=== PATIENT | female | born 1945 | race African-American/Black ===

== ENCOUNTER → 2016-10-05 | Outpatient (CLI) | payer MEDICARE, MEDICAID ==
--- NOTE | 2016-10-06 18:01 | WOMENS IMAGING REPORT ---
EXAM DESCRIPTION: RIGHT DIAGNOSTIC MAMMO W/CAD; U/S BREAST UNILAT LIMITED COMPLETED DATE/TIME: 10/05/2016 10:29 am; 10/05/2016 11:19 am REASON FOR STUDY: N63 LUMP; RT BREAST LUMP,N63 R92.2 INCONCLUSIVE MAMMOGRAM COMPARISON: 08/24/2016, 01/09/2014 TECHNIQUE: Cone compression craniocaudal and mediolateral oblique images of the breast recorded with digital acquisition. Additional right breast ultrasound LIMITATIONS: None. FINDINGS: BREAST: right MASSES: In the right breast laterally, about the 9 o'clock position, a mammographic nodule is present with ill-defined borders, measuring about 1 cm in size CALCIFICATIONS: No new or suspicious calcifications. ARCHITECTURAL DISTORTION: None. DEVELOPING DENSITY: None. ASYMMETRY: None noted. OTHER: No other significant findings. Read with the assistance of CAD. .[facility] - R2 Cenova Version 1.3 .[facility] - R2 Cenova Version 1.3 .[facility] - R2 Cenova Version 2.4 .[facility] [place] R2 Cenova Version 2.4 .[facility] - R2 Hospital Sales Representative Version 9.2 Right breast ultrasound: Ultrasound of the right breast 9 o'clock position demonstrates a solid hypoechoic mammographic nodule , taller than wide, with irregular margins worrisome for malignancy. This measures about 1 cm in alaina meter. Ultrasound-guided core biopsy and post biopsy clip placement with follow-up two-view mammogra m recommended. BREAST DENSITY: b. There are scattered areas of fibroglandular density. BIRAD: 5 Highly suggestive of malignancy. Appropriate action should be taken. RECOMMENDATION: RECOMMENDED FOLLOW UP: Right breast ultrasound-guided core biopsy recommended SPECIFIC INTERVENTION/IMAGING/CONSULTATION RECOMMENDED:Right breast ultrasound-guided core biopsy wit h post biopsy mammograms recommended. COMMUNICATION:Patient notified by letter. Practitioner notified. COMMENT: PATIENT NOTIFIED BY LETTER. The [employer] (ACR) has developed recommendations for screening MRI of the breast s in certain patient populations, to be used in conjunction with mammography. Breast MRI surveillanc e may be appropriate for women with more than 20% lifetime risk of developing breast cancer as deter mined by genetic testing, significant family history of the disease, or history of mantle radiation f or Hodgkins Disease. ACR Practice Guidelines 2008. TECHNICAL DOCUMENTATION: FINDING NUMBER: (1) ASSESSMENT: (1) JOB ID: [id number] [employer]- All Rights Reserved
--- NOTE | 2016-10-06 18:01 | WOMENS IMAGING REPORT ---
EXAM DESCRIPTION: RIGHT DIAGNOSTIC MAMMO W/CAD; U/S BREAST UNILAT LIMITED COMPLETED DATE/TIME: 10/05/2016 10:29 am; 10/05/2016 11:19 am REASON FOR STUDY: N63 LUMP; RT BREAST LUMP,N63 R92.2 INCONCLUSIVE MAMMOGRAM COMPARISON: 08/24/2016, 01/09/2014 TECHNIQUE: Cone compression craniocaudal and mediolateral oblique images of the breast recorded with digital acquisition. Additional right breast ultrasound LIMITATIONS: None. FINDINGS: BREAST: right MASSES: In the right breast laterally, about the 9 o'clock position, a mammographic nodule is present with ill-defined borders, measuring about 1 cm in size CALCIFICATIONS: No new or suspicious calcifications. ARCHITECTURAL DISTORTION: None. DEVELOPING DENSITY: None. ASYMMETRY: None noted. OTHER: No other significant findings. Read with the assistance of CAD. .[facility] - R2 Cenova Version 1.3 .[facility] - R2 Cenova Version 1.3 .[facility] - R2 Cenova Version 2.4 .[facility] [place] Cenova Version 2.4 .[facility] - R2 Stogy Roller Version 9.2 Right breast ultrasound: Ultrasound of the right breast 9 o'clock position demonstrates a solid hypoechoic mammographic nodule , taller than wide, with irregular margins worrisome for malignancy. This measures about 1 cm in alaina meter. Ultrasound-guided core biopsy and post biopsy clip placement with follow-up two-view mammogra m recommended. BREAST DENSITY: b. There are scattered areas of fibroglandular density. BIRAD: 5 Highly suggestive of malignancy. Appropriate action should be taken. RECOMMENDATION: RECOMMENDED FOLLOW UP: Right breast ultrasound-guided core biopsy recommended SPECIFIC INTERVENTION/IMAGING/CONSULTATION RECOMMENDED:Right breast ultrasound-guided core biopsy wit h post biopsy mammograms recommended. COMMUNICATION:Patient notified by letter. Practitioner notified. COMMENT: PATIENT NOTIFIED BY LETTER. The [employer] (ACR) has developed recommendations for screening MRI of the breast s in certain patient populations, to be used in conjunction with mammography. Breast MRI surveillanc e may be appropriate for women with more than 20% lifetime risk of developing breast cancer as deter mined by genetic testing, significant family history of the disease, or history of mantle radiation f or Hodgkins Disease. ACR Practice Guidelines 2008. TECHNICAL DOCUMENTATION: FINDING NUMBER: (1) ASSESSMENT: (1) JOB ID: [id number] [employer]- All Rights Reserved
== END ==
LOC: WHI 12:13
PROVIDERS: ATTEND Nurse Practitioner Psychiatric/Mental Health
DX: N63 Unspecified lump in breast (principal)
CPT/HCPCS: 76642; G0204

== ENCOUNTER → 2016-10-16 | Day surgery (SDC) | payer MEDICARE, MEDICAID ==
[~2016-10-16] MED LIST: LIDOCAINE 2% INJ (20 MG/ML) 20 ML MDV ONE
--- NOTE | 2016-10-20 07:34 | WOMENS IMAGING REPORT ---
EXAM DESCRIPTION: U/S BREAST BX; RIGHT DIG DX MAMMO NO CHG COMPLETED DATE/TIME: 10/16/2016 2:20 pm; 10/16/2016 2:07 pm REASON FOR STUDY: R92.8; R92.8 S/P US BX FOR CLIP PLACEMENT R92.8 OTH ABN AND INCONCLUSIVE FINDINGS ON DX IMAGING OF NAVEED COMPARISON: Mammograms 08/24/2016, 10/05/2016 Right breast ultrasound 10/05/2016 TECHNIQUE: The procedure was discussed with the patient and the patient agreed to proceed. The patient was scanned and the area of interest in the 9 o'clock position 7 cm from the nipple of th e right breast was localized. This correlates with the area of concern on prior imaging studies. Thi s area was targeted for ultrasound-guided core biopsy. After sterile skin prep and 4 cc local lidocaine 1% for skin and deep tissue anesthesia, a 14 gauge c oaxial core biopsy needle was used to obtain several cores of tissue from the lesion. Under ultrasou nd guidance, a ribbon clip was placed in the areas sampled. There were no immediate post-procedure c omplications. MAMMOGRAM: Post-procedure two view mammogram was acquired in the digital mammogram suite. The clip wa s in the expected location. No significant hematoma. Pathology yields a diagnosis of invasive ductal carcinoma Pathology is concordant. LIMITATIONS: None. FINDINGS: Ultrasound guided breast biopsy as described above. COMMENT: Pertinent findings on the imaging study reported as a CRITICAL RESULT to [facility] ANAND AVILA ICK [id number] hours on 10/19/2016. Category of Critical Result: Breast biopsy positive for malignancy COMMUNICATION: As above Patient medication list reviewed: Yes- PQRS [id number]:Eligible professional attests to documenting in the medical record they obtained, updated, or reviewed the patient's current medications. TECHNICAL DOCUMENTATION: JOB ID: [id number] [employer]- All Rights Reserved
--- NOTE | 2016-10-20 07:34 | WOMENS IMAGING REPORT ---
EXAM DESCRIPTION: U/S BREAST BX; RIGHT DIG DX MAMMO NO CHG COMPLETED DATE/TIME: 10/16/2016 2:20 pm; 10/16/2016 2:07 pm REASON FOR STUDY: R92.8; R92.8 S/P US BX FOR CLIP PLACEMENT R92.8 OTH ABN AND INCONCLUSIVE FINDINGS ON DX IMAGING OF NAVEED COMPARISON: Mammograms 08/24/2016, 10/05/2016 Right breast ultrasound 10/05/2016 TECHNIQUE: The procedure was discussed with the patient and the patient agreed to proceed. The patient was scanned and the area of interest in the 9 o'clock position 7 cm from the nipple of th e right breast was localized. This correlates with the area of concern on prior imaging studies. Thi s area was targeted for ultrasound-guided core biopsy. After sterile skin prep and 4 cc local lidocaine 1% for skin and deep tissue anesthesia, a 14 gauge c oaxial core biopsy needle was used to obtain several cores of tissue from the lesion. Under ultrasou nd guidance, a ribbon clip was placed in the areas sampled. There were no immediate post-procedure c omplications. MAMMOGRAM: Post-procedure two view mammogram was acquired in the digital mammogram suite. The clip wa s in the expected location. No significant hematoma. Pathology yields a diagnosis of invasive ductal carcinoma Pathology is concordant. LIMITATIONS: None. FINDINGS: Ultrasound guided breast biopsy as described above. COMMENT: Pertinent findings on the imaging study reported as a CRITICAL RESULT to [facility] ANAND AVILA ICK [id number] hours on 10/19/2016. Category of Critical Result: Breast biopsy positive for malignancy COMMUNICATION: As above Patient medication list reviewed: Yes- PQRS [id number]:Eligible professional attests to documenting in the medical record they obtained, updated, or reviewed the patient's current medications. TECHNICAL DOCUMENTATION: JOB ID: [id number] [employer]- All Rights Reserved
== END ==
LOC: WI 12:05
PROVIDERS: ATTEND Nurse Practitioner Psychiatric/Mental Health
PROC: 0HBT3ZX Excision of Right Breast, Percutaneous Approach, Diagnostic (ICD-10-PCS; principal; 2016-10-16)
DX: R92.8 Other abnormal and inconclusive findings on diagnostic imaging of breast (principal); C50.911 Malignant neoplasm of unspecified site of right female breast; Z17.0 Estrogen receptor positive status [ER+]
CPT/HCPCS: 88305 ×2; 19083; J3490

== ENCOUNTER → 2017-04-26 | Outpatient (CLI) | payer MEDICARE, MEDICAID ==
[2017-04-26 11:50] LABS: ABSOLUTE BASOPHILS # (AUTO) 0.1 10^3/uL (0.0-0.2); ABSOLUTE EOSINOPHILS # (AUTO) 0.2 10^3/uL (0.0-0.6); ABSOLUTE LYMPHOCYTES (AUTO) 1.7 10^3/uL (0.5-4.7); ABSOLUTE MONOCYTES (AUTO) 0.4 10^3/uL (0.1-1.4); ABSOLUTE NEUT (AUTO) 5.4 10^3/uL (1.7-8.2); BASOPHILS % (AUTO) 1.3 % (0-2); EOSINOPHILS % (AUTO) 2.3 % (0-6); HEMATOCRIT 37.5 % (36.0-47.0); HEMOGLOBIN 12.3 g/dL (12.0-15.5); HGB HCT DIFFERENCE -0.6; MEAN CORPUSCULAR HGB CONC 32.8 g/dL (32.0-36.0); MEAN CORPUSCULAR VOLUME 79 fl (80-97); MONOCYTES % (AUTO) 5.5 % (3-13); RED BLOOD COUNT 4.73 10^6/uL (3.72-5.28); RED CELL DISTRIBUTION WIDTH 15.7 % (11.5-14.0); SEGMENTED NEUTROPHILS % (AUTO) 68.9 % (42-78); WHITE BLOOD COUNT 7.9 10^3/uL (4.0-10.5)
[2017-04-26 12:07] LABS: ALANINE AMINOTRANSFERASE 22 U/L (9-52); ALBUMIN 4.1 g/dL (3.5-5.0); ALKALINE PHOSPHATASE 74 U/L (38-126); ASPARTATE AMINO TRANSFERASE 16 U/L (14-36); BILIRUBIN,DIRECT 0.2 mg/dL (0.0-0.4); BILIRUBIN,TOTAL 0.4 mg/dL (0.2-1.3); TOTAL PROTEIN 6.9 g/dL (6.3-8.2)
== END ==
LOC: OD 10:38
PROVIDERS: ATTEND Radiology Radiation Oncology
DX: C50.411 Malignant neoplasm of upper-outer quadrant of right female breast (principal); Z17.0 Estrogen receptor positive status [ER+]
CPT/HCPCS: 36415; 80076; 85025

== ENCOUNTER 2018-03-25 10:36 | Day surgery (SDC) | payer MEDICARE, MEDICAID ==
[2018-03-23 09:31] LABS: APPEARANCE,URINE CLEAR; BILIRUBIN,URINE NEGATIVE (NEGATIVE); COLOR,URINE STRAW; GLUCOSE, URINE NEGATIVE (NEGATIVE); KETONES,URINE NEGATIVE (NEGATIVE); LEUKOCYTE ESTERASE,URINE NEGATIVE (NEGATIVE); NITRITE,URINE NEGATIVE (NEGATIVE); PROTEIN,URINE NEGATIVE (NEGATIVE); URINE SPECIFIC GRAVITY 1.004; UROBILINOGEN,URINE NEGATIVE mg/dL (<2.0)
[2018-03-23 10:39] LABS: HEMATOCRIT 37.2 % (36.0-47.0); MEAN CORPUSCULAR HEMOGLOBIN 25.7 pg (27.0-33.4); MEAN CORPUSCULAR HGB CONC 32.2 g/dL (32.0-36.0); MEAN CORPUSCULAR VOLUME 80 fl (80-97); PLATELET COUNT 360 10^3/uL (150-450); RED BLOOD COUNT 4.66 10^6/uL (3.72-5.28); RED CELL DISTRIBUTION WIDTH 15.6 % (11.5-14.0); WHITE BLOOD COUNT 6.6 10^3/uL (4.0-10.5)
[2018-03-23 10:56] LABS: ANION GAP 10 (5-19); BLOOD UREA NITROGEN 12 mg/dL (7-20); CALCIUM 9.5 mg/dL (8.4-10.2); CARBON DIOXIDE 31 mmol/L (22-30); CHLORIDE 105 mmol/L (98-107); GLUCOSE 74 mg/dL (75-110); POTASSIUM 4.3 mmol/L (3.6-5.0); SODIUM 145.6 mmol/L (137-145)
--- NOTE | 2018-03-23 11:33 | RADIOLOGY REPORT (SQ) ---
EXAM DESCRIPTION: CHEST PA/LATERAL COMPLETED DATE/TIME: 03/23/2018 10:04 am REASON FOR STUDY: PRE-OP No chest issues. COMPARISON: None. EXAM PARAMETERS: NUMBER OF VIEWS: two views TECHNIQUE: Digital Frontal and Lateral radiographic views of the chest acquired. RADIATION DOSE: NA LIMITATIONS: none FINDINGS: LUNGS AND PLEURA: No opacities, masses or pneumothorax. No pleural effusion. MEDIASTINUM AND HILAR STRUCTURES: No masses or contour abnormalities. HEART AND VASCULAR STRUCTURES: Heart normal size. No evidence for failure. BONES: No acute findings. HARDWARE: None in the chest. OTHER: No other significant finding. IMPRESSION: NO SIGNIFICANT RADIOGRAPHIC FINDING IN THE CHEST. TECHNICAL DOCUMENTATION: JOB ID: [id number] [employer]- All Rights Reserved Reading location - IP/workstation name: [email or web address]
--- NOTE | 2018-03-24 07:41 | EKG REPORT ---
SEVERITY:- ABNORMAL ECG - SINUS RHYTHM PROBABLE LEFT ATRIAL ABNORMALITY BORDERLINE LEFT AXIS DEVIATION CONSIDER ANTEROSEPTAL INFARCT : Confirmed by: Carmen Gomez MD 24-Mar-2018 07:39:56
[~2018-03-25 10:36] MED LIST changes: +BUPIVACAINE HCL 0.5 % INJ/PF 30 ML SDV ONE; +CEFAZOLIN 2 GM/D5W RTU 2 GM/50 ML RTUPB IV PRN; +CLINDAMYCIN 600 MG/D5W RTU 600 MG/50 ML RTUPB IV PRN; +LACTATED RINGERS 1000 ML IV PRN; +LIDOCAINE 1% INJ-PF (10 MG/ML) 30 ML SDV ONE; -LIDOCAINE 2% INJ (20 MG/ML) 20 ML MDV ONE
[2018-03-25] MEDS ORDERED: MIDAZOLAM 2 MG/2 ML INJ ONE (11:53)
[2018-03-25] MEDS ORDERED: FENTANYL CITRATE INJ/PF 100 MCG/2 ML AMPUL ONE (11:53)
[2018-03-25] MEDS ORDERED: PROPOFOL INJ 200 MG/20 ML VIAL IV ONE (11:54)
[2018-03-25] MEDS ORDERED: ONDANSETRON HCL INJ/PF 4 MG/2 ML SDV IV PRN (12:48)
[2018-03-25] MEDS ORDERED: HYDROCODONE/ACETAMINOPHEN 5-325 MG TABLET PO PRN (12:48)
--- NOTE | 2018-03-25 12:48 | Operative Report ---
Operative Report DATE OF SURGERY: 03/25/18 PREOPERATIVE DIAGNOSIS: Right carpal tunnel syndrome POSTOPERATIVE DIAGNOSIS: Same OPERATION: Endoscopic right carpal tunnel release SURGEON: BENNIE HARVEY ANESTHESIA: LMAC COMPLICATIONS: None ESTIMATED BLOOD LOSS: Minimal PROCEDURE: Indication for above procedure: 72-year-old female with long-standing history of numbness and tingling in her right wrist. Patient had neurodiagnostic testing confirming carpal tunnel syndrome. We discussed treatment options given the severity of her carpal tunnel decision was made to proceed with operative intervention. Risks and benefits were explained patient verbalized understanding consented for the procedure. Procedure In Detail: Patient was seen and evaluated in the preoperative holding area. The RIGHT upper extremity was initialized and marked. Patient received Ancef IV for bacterial prophylaxis. Patient was taken back to the operative room where transferred operative table. Patient was then placed under MAC anesthesia. Once adequately anesthetized, a nonsterile tourniquet was placed on the upper extremity. A surgical team debriefing was performed ensuring all instrumentation was available, the surgical procedure was discussed with possible concerns reviewed. Skin was prepped with alcohol a 50:50 10 mL mixture of 1% lidocaine and 0.5% Marcaine plain was injected locally and w/in carpal canal. The upper extremity was prepped with chlorhexidine and alcohol and draped in a sterile fashion. A timeout was done identifying correct patient, procedure and extremity everyone in attendance agree with this and verbalized no concerns.The extremity was then exsanguinated the tourniquet was inflated to 250 mmHg. A transverse skin incision was made just proximal to the wrist flexion crease ulnar to the palmaris longus. Blunt dissection was performed down to the palmaris longus tendon which was retracted radially. Deep to the palmaris longus tendon was the volar carpal ligament this was incised identifying the median nerve deep. With the use of a [place] elevator any soft tissue/synovium was freed from the undersurface of the transverse carpal ligament. The hook of hamate was identified ulnarly. The ConMed cannulas were then introduced beginning with #1 progressing to a #3 gently dilating the carpal canal. I then introduced the scope within the cannula and identified transverse carpal ligament ensuring the median nerve was not visualized within the cannula. I triangulated distally with a 25-gauge needle identifying the distal aspect of the transverse carpal ligament, to ensure protection of the superficial palmar arch. The arthroscopic knife was used to incise the transverse carpal ligament under direct visualization with the arthroscopic camera. Any excess transverse fibers that remained after the first past were carefully released with a repeat pass. The median nerve was then directly visualized radially without disruption. Once this was completed I placed the #3 dilator and assured I got complete release of the transverse carpal ligament without residual compression. The median nerve was directly visualized and free of any overlying compression. I then turned my attention to release of the volar antebrachial fascia proximally. Once again a [place] was used to open the wound and I proceeded with cannula #1 to #3. The arthroscope was introduced into the cannula and under direct visualization the volar antebrachial fascia was released. Once this was complete I copiusly irrigated the wound with normal saline. The skin incision was closed with 4-0 Monocryl subcutaneous and a running subcuticular 4-0 Monocryl. This was reinforced with Dermabond and Steri -Strips. Sterile, 4 x 4's and a Yosef bandage was placed loosely. Sponge counts , instrument counts and needle counts were correct. The was no intraoperative complications patient tolerated the procedure well and was stable to PACU.
--- NOTE | 2018-03-25 12:48 | Discharge Summary ---
Discharge Summary (SDC) - Discharge Final Diagnosis: Right Carpal Tunnel Syndrome Date of Surgery: 03/25/18 Discharge Date: 03/25/18 Condition: Good Treatment or Instructions: Schedule Follow Up w/ Dr. Sanju Lerma @ [facility] to be seen in 10-14 days or as scheduled [place]: [place]: [place]: May remove dressing on postop day #3, keep incision covered and dry. Ice and elevate May begin finger range of motion attempting to make full fist. Stool softener of choice when on pain medication. Prescriptions: Hydrocodone/Acetaminophen [[place] 5-325 mg Tablet] 1 tab PO Q8 PRN #10 tablet PRN Reason: Referrals: FRANK AGUDELO MD [Primary Care Provider] - Respiratory Treatments at Home: Deep Breathing/Coughing Discharge Activity: No Lifting Over 10 Pounds, No Lifting/Push/Pulling Report the Following to Your Physician Immediately: Fever over 101 Degrees, Unusual Bleeding, Redness, Swelling, Warmth, Increased Soreness
[2018-03-25] MEDS ORDERED: DIPHENHYDRAMINE HCL 50 MG/ML VIAL IV PRN (13:00)
[2018-03-25] MEDS ORDERED: PROMETHAZINE HCL INJ 25 MG/1 ML VIAL IV PRN ×2 (13:00)
[2018-03-25] MEDS ORDERED: OXYCODONE-ACETAMINOPHEN 5-325 MG TABLET PO PRN ×2 (13:00)
[2018-03-25] MEDS ORDERED: MEPERIDINE HCL/PF INJ 25 MG/1 ML DISP.SYRIN IV PRN (13:00)
[2018-03-25] MEDS ORDERED: FENTANYL CITRATE INJ/PF 100 MCG/2 ML AMPUL IV PRN ×3 (13:00)
[2018-03-25] MEDS ORDERED: MORPHINE SULFATE 10 MG/ML INJ IV PRN (13:00)
[2018-03-25 14:34] VITALS: BP 122/88
== END 2018-03-25 14:35 | disposition home or self-care (01) ==
LOC: OROUT 10:36
PROVIDERS: ATTEND Orthopaedic Surgery
DX: G56.01 Carpal tunnel syndrome, right upper limb (principal); I10 Essential (primary) hypertension; E11.9 Type 2 diabetes mellitus without complications; D64.9 Anemia, unspecified; K21.9 Gastro-esophageal reflux disease without esophagitis; J45.909 Unspecified asthma, uncomplicated; E66.9 Obesity, unspecified; Z79.82 Long term (current) use of aspirin; Z79.899 Other long term (current) drug therapy; Z79.84 Long term (current) use of oral hypoglycemic drugs; Z88.0 Allergy status to penicillin; Z68.38 Body mass index [BMI] 38.0-38.9, adult
CPT/HCPCS: 93005; 36415; 82962; 85027; 80048; 81001; 83036; 71046; 93010; 29848; J2250; J3010; J3490; J2704; A9270; 1810

== ENCOUNTER 2018-05-12 07:53 | Day surgery (SDC) | payer MEDICARE, MEDICAID ==
[~2018-05-12 07:53] MED LIST changes: -BUPIVACAINE HCL 0.5 % INJ/PF 30 ML SDV ONE; -CEFAZOLIN 2 GM/D5W RTU 2 GM/50 ML RTUPB IV PRN; +CHONDR SU A NA/HYALUR INTRAOC KIT (SURGICARE) ONE; -CLINDAMYCIN 600 MG/D5W RTU 600 MG/50 ML RTUPB IV PRN; +EPINEPHRINE INJ/PF 1 MG/1 ML AMPULE ONE; +KETOROLAC TROMETHAMINE 0.45% 4 DROP/0.4 ML DROPERETTE OS PRN; -LACTATED RINGERS 1000 ML IV PRN
[2018-05-12] MEDS ORDERED: TRYPAN BLUE 0.06 % OPH SOLN 0.5 ML DISP.SYRIN ONE (08:20)
[2018-05-12] MEDS: TETRACAINE HCL 0.5% OPH SOLN 2 ML OS PRN ×3 (09:00→09:45)
[2018-05-12] MEDS: TROPICAMIDE 1% OPH SOLN 3 ML OS PRN ×3 (09:00→09:22)
[2018-05-12] MEDS: CYCLOPENTOLATE 0.2%/PHENYLEPHRINE 1% OPH SOLN 2 ML OS PRN ×3 (09:00→09:21)
[2018-05-12] MEDS: BESIFLOXACIN HCL 0.6% OPH SUSP 5 ML BOTTLE OS PRN ×3 (09:00→10:04)
[2018-05-12] MEDS ORDERED: MIDAZOLAM 2 MG/2 ML INJ ONE (09:15)
[2018-05-12] MEDS ORDERED: FENTANYL CITRATE INJ/PF 100 MCG/2 ML AMPUL ONE (09:15)
--- NOTE | 2018-05-12 19:56 | [facility] DISCHARGE SUMMARY E ---
[facility] Discharge Summary NAME: BANDAR CANNON AGE: 72Y ADMITTED: 05/12/2018 DISCHARGED: 05/12/2018 HOSPITAL COURSE: This is a 72-year-old female who underwent cataract extraction of the left eye. DIAGNOSIS: CATARACT, LEFT EYE. She underwent surgery because she was having trouble seeing words on the television. DISCHARGE INSTRUCTIONS: She should be on a regular diet. No bending at her waist, no heavy lifting. She should use her Besivance, Ilevro, and Durezol at 3 p.m. and 8 p.m. and sleep with a rigid shield. I will see her for her 1 day postoperative tomorrow. DICTATING PHYSICIAN: BERTA ABDULLAHI M.D. [id number] PHY#: [id number] ID: [id number] JOB#: [id number] ACCT: [id number] cc:BERTA ABDULLAHI M.D. >
--- NOTE | 2018-05-12 19:56 | [facility] OPERATIVE REPORT E ---
[facility] Operative Report NAME: BANDAR CANNON AGE: 72Y DATE OF SURGERY: 05/12/2018 ROOM: PREOPERATIVE DIAGNOSIS: CATARACT, LEFT EYE. POSTOPERATIVE DIAGNOSIS: CATARACT, LEFT EYE. OPERATION: Cataract extraction with insertion of an IOL of the left eye. SURGEON: BERTA ABDULLAHI M.D. ANESTHESIA: Topical. PROCEDURE: After obtaining appropriate consent, the patient's left eye was prepped and draped in sterile fashion as well as the surgeon in a sterile manner and cataract surgery was started. First a paracentesis blade was used to make a side-port incision. Viscoelastic was used to inflate the anterior chamber. Next a 2.4 mm incision was made with a 2.4 mm blade, clear corneal temporally. A continuous capsulorrhexis was made using a cystotome and Utrata forceps. Following this hydrodissection was carried out to make the lens fully loose and mobile and it was rotated 90 degrees. Following this, a cmyldt-upp-bxiwppk technique was used to phacoemulsify the lens with a CDE of 5.35. The remaining cortex was removed with irrigation/aspiration. Provisc was instilled into the capsular bag to inflate the bag. A SN60WF, 16.5 diopter lens was placed. The remaining viscoelastic material was removed with irrigation/aspiration. Following this, the incision was found to be watertight. Besivance was instilled into the eye and a protective shield was placed over the eye. The patient returned to the postoperative recovery in stable condition. DICTATING PHYSICIAN: BERTA ABDULLAHI M.D. [id number] PHY#: [id number] ID: [id number] JOB#: [id number] ACCT: [id number] cc:BERTA ABDULLAHI M.D. >
== END 2018-05-12 11:12 | disposition home or self-care (01) ==
LOC: SC 07:53
PROVIDERS: ATTEND Internal Medicine
DX: H25.813 Combined forms of age-related cataract, bilateral (principal); H43.813 Vitreous degeneration, bilateral; H04.123 Dry eye syndrome of bilateral lacrimal glands; I10 Essential (primary) hypertension; M19.90 Unspecified osteoarthritis, unspecified site; E11.9 Type 2 diabetes mellitus without complications; E78.00 Pure hypercholesterolemia, unspecified; Z87.891 Personal history of nicotine dependence; Z79.899 Other long term (current) drug therapy; Z79.84 Long term (current) use of oral hypoglycemic drugs; Z88.6 Allergy status to analgesic agent; Z80.0 Family history of malignant neoplasm of digestive organs
CPT/HCPCS: 66984; 82962; V2632; J2250; J3490 ×2; A9270; J0171; J3010

== ENCOUNTER 2018-06-25 21:14 | Emergency (ER) | payer MEDICARE, MEDICAID ==
[2018-06-25 21:53] VITALS: BP 144/69
[2018-06-25] MEDS ORDERED: LIDOCAINE 5% (700 MG) TRANSDERMAL ADH..PATCH TP ONE (22:14)
[2018-06-25] MEDS ORDERED: HYDROCODONE/ACETAMINOPHEN 5-325 MG (6 TAB/ER DISP) PO PRN (22:14)
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
== END 2018-06-25 22:45 | disposition home or self-care (01) ==
LOC: ER 21:14
DX: G89.29 Other chronic pain (principal); M54.5 Low back pain; M54.2 Cervicalgia; I10 Essential (primary) hypertension; M47.9 Spondylosis, unspecified
CPT/HCPCS: 99283; A9270

== ENCOUNTER 2020-09-12 09:34 | Day surgery (SDC) | payer MEDICARE, MEDICAID ==
[~2020-09-12 09:34] MED LIST changes: +DORZOLAMIDE HCL 2%/TIMOLOL MALEAT 0.5% OPH SOLN 10 ML OD PRN; +KETOROLAC TROMETHAMINE 0.45% 4 DROP/0.4 ML DROPERETTE OD PRN; -KETOROLAC TROMETHAMINE 0.45% 4 DROP/0.4 ML DROPERETTE OS PRN; -LIDOCAINE 1% INJ-PF (10 MG/ML) 30 ML SDV ONE; +LIDOCAINE 1%/PHENYLEPHRINE 1.5% 1 ML VIAL ONE; +PREDNISOLONE ACETATE 1% OPH SUSP 5 ML OD PRN
[2020-09-12] MEDS: TROPICAMIDE 1% OPH SOLN 15 ML OD PRN ×3 (10:12→10:34)
[2020-09-12] MEDS: CYCLOPENTOLATE 0.2%/PHENYLEPHRINE 1% OPH SOLN 2 ML OD PRN ×3 (10:12→10:34)
[2020-09-12] MEDS: TETRACAINE HCL 0.5% OPH SOLN 4 ML OD PRN ×3 (10:12→10:55)
[2020-09-12] MEDS: BESIFLOXACIN HCL 0.6% OPH SUSP 5 ML BOTTLE OD PRN ×3 (10:12→11:12)
[2020-09-12] MEDS ORDERED: ONDANSETRON HCL INJ/PF 4 MG/2 ML SDV ONE (10:38)
[2020-09-12] MEDS ORDERED: MIDAZOLAM 2 MG/2 ML INJ ONE (10:38)
[2020-09-12] MEDS ORDERED: FENTANYL CITRATE INJ/PF 100 MCG/2 ML AMPUL ONE (10:39)
--- NOTE | 2020-09-13 07:45 | Operative Report ---
Operative Report-[facility] Operative Report: DATE OF SURGERY: 09/12/2020 PREOPERATIVE DIAGNOSIS: Cataract, right eye POSTOPERATIVE DIAGNOSIS: Cataract, right eye OPERATION: Cataract extraction with insertion of an IOL of the right eye. Intraocular Lens Model: [16.5 diopter SN 60 WF] Patient underwent surgery for difficulty seeing road signs SURGEON: Chaitanya Montenegro MD ANESTHESIA: Topical PROCEDURE: After obtaining appropriate consent, the patient's right eye was prepped and draped in a sterile fashion as well as the surgeon in the sterile manner and cataract surgery was started. First a paracentesis blade was used to make a side-port incision. Viscoelastic was used to inflate the anterior chamber. Next a 2.4 mm incision was made with a 2.4 mm blade, clear corneal temporarily. A continuous capsulorrhexis was made using a cystotome and Utrata forceps. Following this hydrodissection was carried out to make the joni fully loose and mobile and it was rotated. Following this, a divide and conquer technique was used to phacoemulsify the joni. The remaining cortex was removed with an irrigation/aspiration. Provisc was instilled into the capsular bag to inflate the bag. The intraocular lens was placed. The remaining viscoelastic material was removed with irrigation/aspiration. Following this, the incision was found to be watertight. Besivance and Cosopt was instilled into the eye and a protective shield was placed over the eye. The patient was reurned to the postoperative recovery in a stable condition.
== END 2020-09-12 12:11 | disposition home or self-care (01) ==
LOC: SC 09:34
PROVIDERS: ATTEND Internal Medicine
DX: H25.89 Other age-related cataract (principal); H40.053 Ocular hypertension, bilateral; H43.813 Vitreous degeneration, bilateral; E11.36 Type 2 diabetes mellitus with diabetic cataract; Z96.1 Presence of intraocular lens; I10 Essential (primary) hypertension; M19.90 Unspecified osteoarthritis, unspecified site; E78.00 Pure hypercholesterolemia, unspecified; Z87.891 Personal history of nicotine dependence; Z79.84 Long term (current) use of oral hypoglycemic drugs
CPT/HCPCS: 66984; 82962; V2632; J2250; J3490 ×2; A9270; J0171; J2405; J3010